=== PATIENT | female | born 2000 | race Caucasian/White ===

== ENCOUNTER 2022-06-02 22:01 | Emergency (ER) | payer OTHER ==
[~2022-06-02] VITALS: Ht 154.9 cm; Wt 63.5 kg
[2022-06-02 22:30] VITALS: BP 139/90
--- NOTE | 2022-06-02 23:26 | ED EENT ---
History of Present Illness General Chief Complaint: Nasal Problems Stated Complaint: NOSE BLEED Nursing Triage Note: pt ambulatory to room. states she had a nose bleed this am and an additional nose bleed this evening while she was crying. pt states the episode this evening lasted approx 25 mins and states "it was a lot of blood." bleeding is resolved on arrival Source: patient Exam Limitations: no limitations History of Present Illness Date Seen by Provider: Jun 02, 2022 Past Jqslird-Nnvost-Cznwpq Hx Patient Social History Tobacco Use?: No Use of E-Cig and/or Vaping dev: No Substance use?: Yes Substance type: Marijuana Substance frequency: Daily Alcohol Use?: No Physical Exam Vital Signs Vital Signs - First Documented 06/02/22 22:30 Temp 36.7 Pulse 79 Resp 16 B/P (MAP) 139/90 (106) Pulse Ox 99 Height, Weight, BMI Height: '" Weight: lbs. oz. kg; 26.00 BMI Method: Progress/Results/Core Measures Results/Orders Lab Results Laboratory Tests Test 06/02/22 23:30 Range/Units White Blood Count 8.8 4.3-11.0 10^3/uL Red Blood Count 4.55 3.80-5.11 10^6/uL Hemoglobin 13.4 11.5-16.0 g/dL Hematocrit 40 35-52 % Mean Corpuscular Volume 87 80-99 fL Mean Corpuscular Hemoglobin 30 25-34 pg Mean Corpuscular Hemoglobin Concent 34 32-36 g/dL Red Cell Distribution Width 12.8 10.0-14.5 % Platelet Count 329 130-400 10^3/uL Mean Platelet Volume 9.5 9.0-12.2 fL Immature Granulocyte % (Auto) 0 % Neutrophils (%) (Auto) 59 42-75 % Lymphocytes (%) (Auto) 31 12-44 % Monocytes (%) (Auto) 9 0-12 % Eosinophils (%) (Auto) 1 0-10 % Basophils (%) (Auto) 1 0-10 % Neutrophils # (Auto) 5.2 1.8-7.8 10^3/uL Lymphocytes # (Auto) 2.7 1.0-4.0 10^3/uL Monocytes # (Auto) 0.8 0.0-1.0 10^3/uL Eosinophils # (Auto) 0.1 0.0-0.3 10^3/uL Basophils # (Auto) 0.1 0.0-0.1 10^3/uL Immature Granulocyte # (Auto) 0.0 0.0-0.1 10^3/uL My Orders Orders - EZEKIEL WHITMORE APRN Cbc With Automated Diff (06/02/22 23:14) Comprehensive Metabolic Panel (06/02/22 23:14) Protime With Inr (06/02/22 23:14) Partial Thromboplastin Time (06/02/22 23:14) Ed Iv/Invasive Line Start (06/02/22 23:14) Factor Viii Assay (06/02/22 23:20) Factor X Assay (06/02/22 23:21) Fibrinogen (06/02/22 23:21) Ct Head Wo (06/02/22 23:25) Vital Signs/I&O 06/02/22 22:30 Temp 36.7 Pulse 79 Resp 16 B/P (MAP) 139/90 (106) Pulse Ox 99 Blood Pressure Mean: 106 Departure Impression Primary Impression: Nasal bleeding Additional Impression: Adverse effects of medication Departure-Patient Inst. Referrals: [facility] (PCP) Primary Care Physician JUN CARLTON APRN (Family) Primary Care Physician Patient Instructions: Nosebleeds ED Add. Discharge Instructions: Plan: 1. Follow up with your primary care provider regarding your migraine headaches. 2. Stop taking Topiramate as nasal bleeding is a rare side effect of this medication. 3. Your blood levels are stable today. We did order clotting factors to evaluate for any potential hereditary bleeding disorders. 4. You can try Magnesium sulfate 400mg by mouth daily with Tylenol or Ibuprofen per package. 5. Return to ER for any new, concerning, or worsening symptoms. All discharge instructions reviewed with patient and/or family. Voiced understanding. EZEKIEL WHITMORE APRN Jun 02, 2022 23:26
[2022-06-02 23:43] LABS: BASOPHILS # (AUTO) 0.1 10^3/uL (0.0-0.1); BASOPHILS % (AUTO) 1 % (0-10); EOSINOPHILS # (AUTO) 0.1 10^3/uL (0.0-0.3); EOSINOPHILS % (AUTO) 1 % (0-10); HEMATOCRIT 40 % (35-52); HEMOGLOBIN 13.4 g/dL (11.5-16.0); LYMPHOCYTES # (AUTO) 2.7 10^3/uL (1.0-4.0); LYMPHOCYTES % (AUTO) 31 % (12-44); MEAN CORPUSCULAR HEMOGLOBIN 30 pg (25-34); MEAN CORPUSCULAR HGB CONC 34 g/dL (32-36); MEAN CORPUSCULAR VOLUME 87 fL (80-99); MEAN PLATELET VOLUME 9.5 fL (9.0-12.2); MONOCYTES # (AUTO) 0.8 10^3/uL (0.0-1.0); MONOCYTES % (AUTO) 9 % (0-12); NEUTROPHILS # (AUTO) 5.2 10^3/uL (1.8-7.8); NEUTROPHILS % (AUTO) 59 % (42-75); PLATELET COUNT 329 10^3/uL (130-400); WHITE BLOOD COUNT 8.8 10^3/uL (4.3-11.0)
[2022-06-02 23:53] LABS: ALBUMIN 4.6 GM/DL (3.2-4.5); CHLORIDE 107 MMOL/L (98-107); POTASSIUM 3.7 MMOL/L (3.6-5.0); SODIUM 140 MMOL/L (135-145)
[2022-06-02 23:54] LABS: CALCIUM 9.5 MG/DL (8.5-10.1)
[2022-06-02 23:55] LABS: GLUCOSE 89 MG/DL (70-105); TOTAL PROTEIN 8.1 GM/DL (6.4-8.2)
[2022-06-02 23:57] LABS: BILIRUBIN,TOTAL 0.3 MG/DL (0.1-1.0); CARBON DIOXIDE 19 MMOL/L (21-32)
[2022-06-02 23:59] LABS: ALKALINE PHOSPHATASE 59 U/L (40-136); CREATININE SERUM 0.86 MG/DL (0.60-1.30); GFR ESTIMATED 99
[2022-06-03] LABS: BUN/CREATININE RATIO 13
[2022-06-03 00:02] LABS: ALANINE AMINOTRANSFERASE 24 U/L (0-55)
[2022-06-03 00:03] LABS: PROTHROMBIN TIME PATIENT 13.8 SEC (12.2-14.7)
--- NOTE | 2022-06-03 06:46 | Diagnostic Imaging Report ---
PROCEDURE: CT head without contrast. TECHNIQUE: Multiple contiguous axial images were obtained through the brain without the use of intravenous contrast. Auto Exposure Controls were utilized during the CT exam to meet ALARA standards for radiation dose reduction. INDICATION: Headache with dizziness and nosebleeds. FINDINGS: Ventricles and cortical gyral pattern are normal. No intracranial hemorrhage or mass effect. The mastoid air cells and paranasal sinuses are clear. No calvarial fracture. IMPRESSION: Negative CT head without contrast. These findings are concordant with the preliminary report. Dictated by: Dictated on workstation # [id number]
== END 2022-06-03 00:25 | disposition home or self-care (01) ==
LOC: ER 22:05
DX: R04.0 Epistaxis (principal); T50.905A Adverse effect of unspecified drugs, medicaments and biological substances, initial encounter
CPT/HCPCS: 36415; 70450; 80053; 84703; 85025; 85240; 85260; 85384; 85610; 85730

== ENCOUNTER → 2022-10-27 | Outpatient (CLI) | payer OTHER ==
--- NOTE | 2022-10-27 18:07 | Diagnostic Imaging Report ---
HISTORY: Juvenile rheumatoid arthritis TECHNIQUE: 3 views of the bilateral knees COMPARISON: None FINDINGS: No acute fracture or dislocation is seen in the bilateral knees. Alignment appears normal. Joint spaces are preserved. No joint effusion is seen. IMPRESSION: 1. No acute osseous abnormality is seen in the bilateral knees. Dictated by: Dictated on workstation # [id number]
--- NOTE | 2022-10-27 18:21 | Diagnostic Imaging Report ---
Indication: Bilateral wrist pain. Time of Exam: 5:45 PM Distal radius and ulna are intact bilaterally. Carpal bones appear to be intact. Metacarpals and MCP joints are unremarkable. No osseous erosions are seen to. No soft tissue calcifications are identified. Impression: No acute abnormalities detected. Dictated by: Dictated on workstation # [id number]
== END ==
LOC: RAD 17:20
PROVIDERS: ATTEND Internal Medicine
DX: M08.00 Unspecified juvenile rheumatoid arthritis of unspecified site (principal)